=== PATIENT | female | born 1975 | race Caucasian/White ===

== ENCOUNTER → 2021-03-15 20:29 | Outpatient (CLI) | payer SELFPAY | PROVIDERS: Visit Provider Nurse Practitioner Family | DX: U07.1 COVID-19 (principal) | CPT/HCPCS: C9803; U0003; U0005 ==

== ENCOUNTER 2022-09-09 11:24 | Emergency (ER) | payer MEDICAID, SELFPAY ==
--- NOTE | 2022-09-09 11:55 | EXP.UTC ---
Discharge Plan Disposition Patient Disposition: Home, Self-Care Condition: Good Prescriptions Prescriptions: New azithromycin [Zithromax] 250 mg tablet 250 mg PO UD DOSE PK Qty: 6 0RF Rx Instructions: Take two (2) tablets today, then one (1) tablet days #2 thru #5 benzonatate [benzonatate] 100 mg capsule 100 mg PO TIDP PRN (Reason: Cough) Qty: 30 0RF methylprednisolone 4 mg Tablets,Dose Pack 4 mg PO DIRECTED Qty: 21 0RF No Action diclofenac sodium 75 mg tablet,delayed release (DR/EC) 75 mg PO BID topiramate [Topamax] 100 mg tablet 100 mg PO BID tizanidine [Zanaflex] 4 mg capsule 4 mg PO Q8H PRN (Reason: .) hydrocodone 5 mg-acetaminophen 500 mg tablet 5-500 mg tablet 1 tab PO QID famotidine 20 mg tablet 20 mg PO DAILY cholecalciferol (vitamin D3) 125 mcg (5,000 unit) capsule 125 mcg PO DAILY Label Comments: TAKE 1 CAPSULE BY MOUTH ONCE DAILY Referrals Follow up/Referrals: Jodie Nunez APRN [Primary Care Provider] - See instructions Activity Restrictions/Add. Instructions Additional Instructions/Restrictions: Drink plenty of fluids. Take tylenol or ibuprofen for pain or fever. Take the medications as directed. Follow up with your regular doctor. GO TO THE ER FOR ANY WORSENING SYMPTOMS Clinical Impressions Clinical Impression: Sinusitis, Bronchitis Instructions Patient Instructions: DI for Sinusitis Discharge ED Provider: Ligia Willoughby [facility] General Stated complaint: Congestion headache sore throat drainage Time Seen by Provider: 09/09/22 11:55 Related Data Home Medications Medication Instructions Recorded Confirmed diclofenac sodium 75 mg 75 mg PO BID . 03/15/21 09/09/22 tablet,delayed release hydrocodone 5 mg-acetaminophen 500 1 tab PO QID . 03/15/21 09/09/22 mg tablet tizanidine 4 mg capsule (Zanaflex) 4 mg PO Q8H PRN . 03/15/21 09/09/22 topiramate 100 mg tablet (Topamax) 100 mg PO BID . 03/15/21 09/09/22 cholecalciferol (vitamin D3) 125 125 mcg PO DAILY Supplement 09/09/22 09/09/22 mcg (5,000 unit) capsule famotidine 20 mg tablet 20 mg PO DAILY GERD 09/09/22 09/09/22 Previous Rx's Medication Instructions Recorded azithromycin 250 mg tablet 250 mg PO UD DOSE PK #6 tabs 09/09/22 (Zithromax) benzonatate 100 mg capsule 100 mg PO TIDP PRN Cough #30 caps 09/09/22 methylprednisolone 4 mg tablets in 4 mg PO DIRECTED #21 tabs 09/09/22 a dose pack Allergies Allergy/AdvReac Type Severity Reaction Status Date / Time amoxicillin [From Augmentin] Allergy Verified 09/09/22 12:04 clavulanic acid Allergy Verified 09/09/22 12:04 [From Augmentin] [facility] Disclaimer: The information contained in this section may have been updated after the patient was seen, as this information can be updated by other users. Social History Smoking Status: Current every day smoker alcohol intake: never current occupational status: unemployed Travel in the last 8 weeks: None ROS Obtained: Yes All systems reviewed & no additional complaints except as documented Constitutional Constitutional: Reports chills and Reports fever(s) Eyes Eyes: Denies eye discharge ENT Ears, Nose, Mouth, and Throat: Reports as per HPI Cardiovascular Cardiovascular: Denies chest pain Respiratory Respiratory: Denies chest congestion and Reports cough Gastrointestinal Gastrointestingal: Reports nausea; Denies abdominal pain, constipation, cramping, diarrhea or vomiting Musculoskeletal Musculoskeletal: Denies arthralgias Integumentary/Breasts Skin/Breast: Denies rash Neurologic Neurologic: Denies paresthesias Physical Exam General General appearance: alert and in no apparent distress Eye Eye exam: Present normal appearance, PERRL and EOMI ENT ENT exam: Present mucous membranes moist and normal external ear exam Expanded ENT Exam Externa
[2022-09-09 12:00] VITALS: BP 169/97; PULSE 88; RESP 20; TEMP 36.9; O2SAT 97; BMI 29.7
[2022-09-09 12:54] VITALS: BP 169/97; PULSE 88; RESP 20; TEMP 36.9; O2SAT 97
== END 2022-09-09 12:53 | disposition home or self-care (01) ==
PROVIDERS: Emergency Provider Physician Assistant; PCP Nurse Practitioner Family
DX: J20.9 Acute bronchitis, unspecified (principal); J01.90 Acute sinusitis, unspecified; F17.200 Nicotine dependence, unspecified, uncomplicated
CPT/HCPCS: 99204; 99212; G0463

== ENCOUNTER 2025-05-15 15:10 | Outpatient (CLI) | payer MEDICAID, SELFPAY ==
--- OUTSIDE RECORDS SUMMARY | 2025-04-03 11:45 | XMS_ITS | Encounter Summary ---
Author Organization [employer] ([place], [place], [place], [place], [place]) Address [address] [place] [address] Care Team Providers Care Blackjack Supervisor Name Role Phone Jodie Nunez SENIOR TECHNICAL RECRUITER Primary Care Provider + Harvey Pritchard APRN Unavailable [phone] Maxime James MD Unavailable Reason for Referral * Diagnostic X-Ray (Routine) - Closed Specialty Diagnoses / Procedures Referred By Contac t Referred To Contact Radiology Diagnoses Radiculopathy of lumbar region Cervical myelopathy with cervical radiculopathy (HCC) Procedures XR spine cervical 2 or 3 views Harvey Pritchard, SENIOR TECHNICAL RECRUITER [address] [place] [address] Phone: tel: fax: [facility] - X-ray [address] [place] [address] Phone: tel: fax: Referral ID Status Reason Start Date Expiration Date Visits Re quested Visits Authorized [id number] Closed 04/03/2025 04/03/2026 1 1 * Diagnostic X-Ray (Routine) - Closed Specialty Diagnoses / Procedures Referred By Contac t Referred To Contact Radiology Diagnoses Spinal stenosis of lumbar region, unspecified whether neurogenic claudication present Procedures XR spine lumbar 2 or 3 views Harvey Pritchard, SENIOR TECHNICAL RECRUITER [address] [facility] [place] [address] Phone: tel: fax: [facility] - X-ray [address] [place] [address] Phone: tel: fax: Referral ID Status Reason Start Date Expiration Date Visits Re quested Visits Authorized [id number] Closed 04/03/2025 04/03/2026 1 1 Reason for Visit * Diagnostic X-Ray (Routine) - Closed Specialty Diagnoses / Procedures Referred By Justyn garcia Referred To Contact Radiology Diagnoses Radiculopathy of lumbar region Cervical myelopathy with cervical radiculopathy (HCC) Procedures XR spine cervical 2 or 3 views Harvey Pritchard, SENIOR TECHNICAL RECRUITER [address] [facility] [place] [address] Phone: tel: fax: [facility] - X-ray [address] [place] [address] Phone: tel: fax: Referral ID Status Reason Start Date Expiration Date Visits Re quested Visits Authorized [id number] Closed 04/03/2025 04/03/2026 1 1 Encounter Details Date Type Department Care Team (Latest Contact Info) Description 04/03/2025 12:45 PM EDT - 04/03/2025 11:59 PM EDT Hospital Encounter [facility] - X-ray [address] [place] [address] Harvey Pritchard, SENIOR TECHNICAL RECRUITER [address] [facility] [place] [address] Spinal stenosis of lumbar region, unspecified whether neurogenic claudication present; Radiculopathy of lumbar region; Cervical myelopathy with cervical radiculopathy (HCC) Discharge Disposition: Home or Self Care Social History Tobacco Use Types Packs/Day Years Used Date Smoking Tobacco: Every Day Cigarettes Smokeless Tobacco: Never Comments:Last smoke this am 10/21/24 Alcohol Use Standard Drinks/Week Comments Not Currently 0 (1 standard drink = 0.6 oz pur e alcohol) Utilities Answer Date Recorded In the past 12 months, has t he electric, gas, oil, or water company threatened to shut off services in your home? No 10/21/2024 Interpersonal Safety Answer Date Record ed How often does anyone, javier riddle family and friends, physically hurt you? Never 10/21/2024 How often does anyone, javier riddle family and friends, insult or talk down to you? Never 10/21/2024 How often does anyone, javier riddle family and friends, threaten you with harm? Never 10/21/2024 How often does anyone, javier riddle family and friends, scream or curse at you? Never 10/21/2024 Housing Stability Answer Date Recorded What is your living situation today? I have a [facility] place to live 10/21/[address] you li ve. Do you have problems with any of the following? None of the above 10/21/2024 Food Insecurity Answer Date Recorded Within the past 12 months, y ou worried that your food would run out before you got money to buy more. Never true 10/21/2024 Within the past 12 months, t he food you bought just didn't last and you didn't have money to get more. Never true 10/21/2024 Transportation Needs Answer Date Record ed In the past 12 months, has l ack of reliable transportation kept you from medical appointments, meetings, work or from getting things needed for daily living? No 10/21/2024 Financial Resource Strain Answer Date R ecorded How hard is it for you to pa y for the very basics like food, housing, medical care, and heating? Would you say it is: Not hard at all 10/21/2024 Employment Answer Date Recorded Do you want help finding or keeping work or a job? I do not need or want help 10/21/2024 Family and Community Support Answer Fredy e Recorded If for any reason you need h elp with day-to-day activities such as bathing, preparing meals, shopping, managing finances, etc., do you get the help you need? I get all the help I need 10/21/2024 Feeling Lonely or Isolated 1 10/21 Educational Attainment Answer Date Rufus rded Do you speak a language other than Uzbek at ho me? No 10/21/2024 Do you want help with school or training? For example, starting or completing job training or getting a high school diploma, GED or equivalent. No 10/21/2024 Physical Activity Answer Date Recorded Number of minutes of exercise per week 0 10/21/2024 Self Management Answer Date Recorded Because of a physical, menta l, or emotional condition, do you have serious difficulty concentrating, remembering, or making decisions? (5 years or older) No 10/21/2024 Because of a physical, menta l, or emotional condition, do you have difficulty doing errands alone such as visiting a doctor's office or shopping? (15 years or older) No 10/21/2024 Substance Use Answer Date Recorded How many times in the past y ear have you used prescription drugs for non-medical reasons? Never 10/21/2024 How many times in the past year have you used il legal drugs? Never 10/21/2024 Mental Health Answer Date Recorded Calculation of above two rows 1 Comments No Sex and Gender Information Value Date Recorded Sex Assigned at Female 02/28/2024 11:04 AM CDT Legal Sex Female 1:42 PM CDT Gender Identity Female 02/28/2024 11:04 AM CDT Sexual Orientation Straight 10/21/2024 1: 16 PM CDT documented as of this encounter Medications at Time of Discharge acetaminophen (TYLENOL) 500 MG tablet Take 1 tablet (500 mg total) by mouth every 6 (six) hours as needed for pain. albuterol (Ventolin HFA) 90 mcg/actuation inhaler Inhale 2 puffs by mouth every 4 (four) hours as needed. cetirizine (ZyrTEC) 10 MG tablet Take 1 tablet (10 mg total) by mouth daily. diphenhydrAMINE (BENADRYL) 25 mg tablet Take 1 tablet (25 mg total) by mouth nightly. famotidine (PEPCID) 20 MG tablet Take 1 tablet (20 mg total) by mouth nightly. 02/02/2024 FeroSuL 325 mg (65 mg iron) tablet Take 1 tablet (325 mg total) by mouth daily with breakfast. 11/12/2024 fluticasone propionate (FLONASE) 50 mcg/actuation nasal spray Administer 2 sprays into each nostril daily. losartan (COZAAR) 25 MG tablet Take 1 tablet (25 mg total) by mouth daily. oxyCODONE (ROXICODONE) 5 MG immediate release tablet Take 1 tablet (5 mg total) by mouth every 6 (six) hours as needed for up to 30 doses . Max Daily Amount: 20 mg 30 tablet 10/25/2024 polyethylene glycol (GLYCOLAX) 17 gram/dose powder Take 17 g by mouth nightly. pregabalin (LYRICA) 50 MG capsule Take 1 capsule (50 mg total) by mouth nightly at bedtime. tiZANidine (ZANAFLEX) 4 MG tablet Take 1 tablet (4 mg total) by mouth 3 (three) times daily as needed. 10/01/2024 topiramate (TOPAMAX) 100 MG tablet Take 1 tablet (100 mg total) by mouth 2 (two) times daily. 01/23/2024 documented as of this encounter Plan of Treatment Upcoming Encounters Date Type Department Care Team (Late st Contact Info) Description 10/02/2025 12:15 PM EDT Office Visit [facility] [address] [id number] Drew Aguilar DO [address] [place] [address] documented as of this encounter Procedures Procedure Name Priority Date/Time Associated Diagnosis Comments XR LUMBAR SPINE 2 OR 3 VIEWS Routine 04/03/2025 12:54 PM EDT Spinal stenosis of lumbar region, unspecified whether neurogenic claudication present XR SPINE CERVICAL 2 OR 3 VIEWS Routine 04/03/2025 12:54 PM EDT Radiculopathy of lumbar region Cervical myelopathy with cervical radiculopathy (HCC) documented in this encounter Results * XR spine cervical 2 or 3 views (04/03/2025 12:54 PM EDT) Anatomical Region Laterality Modality C-spine, T-spine, Neck X-Ray Narrative 04/03/2025 1:06 PM EDT AP and lateral views of the cervical spine was taken in clinic today 02/09/2025 was reviewed and interpreted. The patient's status post C5-7 anterior cervical discectomy and fusion. The patient status post C5-7 anterior cervical discectomy fusion. Instrumentation in good position without loosening or failure. There has been no interval cage subsidence. There is no significant adjacent segment degeneration. Harvey Pritchard SENIOR TECHNICAL RECRUITER [facility] ORDER ZAYDA Final Result * XR spine lumbar 2 or 3 views (04/03/2025 12:54 PM EDT) Anatomical Region Laterality Modality L-spine X-Ray Narrative 04/03/2025 1:05 PM EDT AP and lateral views of the lumbar spine was in clinic today 04/03/2025 was reviewed and interpreted. The patient is status post L3-4 transforaminal lumbar interbody fusion. Instrumentation in good position without loosening or failure. There has been no interval cage subsidence. There is L4-5 facet hypertrophy. There are pars defects of L5. There is grade 1 spondylolisthesis of L5-S1. There is significant disc height loss at L5-S1. Harvey Pritchard SENIOR TECHNICAL RECRUITER [facility] ORDER ZAYDA Final Result documented in this encounter Visit Diagnoses Diagnosis Spinal stenosis of lumbar region, unspecified whether neurogenic claudication present Radiculopathy of lumbar region Cervical myelopathy with cervical radiculopathy (HCC) documented in this encounter Care Teams Blackjack Supervisor Relationship Specialty Start Date End Date Jodie Nunez APRN [address] [place] [address] PCP - General Nurse Practitioner 02/22/24 Harvey Pritchard, MEERA [address] [place] [address] Orthopedic Surgery 07/23/24 Maxime James MD [address] [place] [address] Sports Medicine 08/22/24 documented as of this encounter
--- OUTSIDE RECORDS SUMMARY | 2025-04-03 12:15 | XMS_ITS | Encounter Summary ---
Author Organization [employer] ([place], [place], [place], [place], [place]) Address [address] [place] [address] Care Team Providers Care Engagement Mgr Name Role Phone Jodie Nunez DRYING MACHINE TENDER Primary Care Provider + Harvey Pritchard APRN Unavailable [phone] Maxime James MD Unavailable Reason for Visit * Reason Comments Follow-up 10/21/24. L3-4 TLIF. Pt stated she was doing well, stated she has some mild weakness at times. Otherwise no new complaints at this time. Encounter Details Date Type Department Care Team (Late st Contact Info) Description 04/03/2025 1:15 PM EDT Office Visit [facility] - [address] [phone] Drew Aguilar DO [address] [place] [id number] Surgery follow-up (Primary Dx) Social History Tobacco Use Types Packs/Day Years Used Date Smoking Tobacco: Every Day Cigarettes Smokeless Tobacco: Never Tobacco Cessation:Ready to Q uit: Not Asked; Counseling Given: Not Answered Comments:Last smoke this am 10/21/24 Alcohol Use [...] your living situation today? I have a [facility] place to live 10/21/2024 Think about the [...] Do you speak a language other than Afghan at ho me? No 10/21/2024 Do you [...] PM CDT documented as of this encounter Last Filed Vital Signs Vital Sign Reading Time Taken Comments Blood Pressure 166/94 04/03/2025 1:06 PM EDT Pulse - - Temperature - - Respiratory Rate - - Oxygen Saturation - - Inhaled Oxygen Concentration - - Weight 88.5 kg (195 lb) 04/03/2025 1:06 PM EDT Height 170.2 cm (5' 7 ) 04/03/2025 1:06 PM EDT Body Mass Index 30.54 04/03/2025 1:06 PM EDT documented in this encounter Progress Notes * Harvey Pritchard, DRYING MACHINE TENDER - 04/03/2025 1:15 PM EDT ORTHO NOTE: History of Present Illness: This is a 50-year-old female who presents to clinic today for follow-up of both L3-L4 TLIF, and C5-C7 ACDF. L3-L4 TLIF was completed on 10/21/2024. C5-C7 ACDF was completed on 03/06/2024. Patient notes overall she has been doing well with surgical interventions. No radicular pain noted. She does note some intermittent lumbar spine pain. She presents to the clinic today for routine follow-up Physical Exam: General appearance: alert, appears stated age and cooperative Musc: 5 out of 5 motor strength noted all extremities. Anterior cervical incision, posterior lumbarsurgical incision well-healed. No infectious process noted. No cellulitis or erythema noted Vitals: Blood pressure (!) 166/94, height 1.702 m (5' 7 ), weight 88.5 kg (195 lb). Laboratory Data: No results found for this visit on 04/03/25 (from the past 24 hours). Microbiology Results (last 7 days) No results found for the last 168 hours. Radiology: Radiology Results (last 7 days) Procedure Component Value Units Date/Time XR spine lumbar 2 or 3 views [[id number]] Resulted: 04/03/251304 Order Status: Completed Updated: 04/03/251304 Narrative: AP and lateral views of the lumbar [...] is significant disc height loss at L5-S1. XR spine cervical 2 or 3 views [[id number]] Resulted: 04/03/251305 Order Status: Completed Updated: 04/03/251305 Narrative: AP and lateral views of the cervical spine was taken in clinic today 02/09/2025 was reviewed and interpreted. The patient's status post C5-7 anterior cervical discectomy and fusion. The patient status post C5-7 anterior cervical discectomy fusion. Instrumentation in good position without loosening or failure. There has been no interval cage subsidence. There is no significant adjacent segment degeneration. Assessment: #1 status post L3-L4 TLIF #2 status post C5-C7 ACDF Plan: Patient overall doing well. No instrumentation complication noted. She has done well status post surgical intervention. Patient will follow-up in October next year for repeat examination. She is to notify the office of any new complaints or concerns. She verbalized understanding of the findings, and is agreeable to the plan of care. Signed: Harvey Pritchard APRN 04/03/2025 1:10 PM Scribe Statement By signing my name below, I, Harvey Pritchard APRN, attest that this documentation has been preparedunder the direction and in the presence of Drew Aguilar DO. I completed the following sections of the note: HPI- History Present Illness, PE-Physical Exam, Assessment, and Plan Electronically Signed: Harvey Pritchard APRN, Scribe. 04/03/2025 1:10 PM EDT. Cosigned by Drew Aguilar DO at 04/04/2025 9:47 AM EDT Associated attestation - Drew Aguilar DO - 04/04/2025 8:47 AM CDT I, Drew Aguilar DO, personally performed the services described in this documentation, as scribed by Harvey Pritchard APRN in my presence, and it is both accurate and complete. documented in this encounter Plan of Treatment Upcoming Encounters Date Type Department Care Team (Late st Contact Info) Description 10/02/2025 12:15 PM EDT Office Visit [facility] - [address] [phone] Drew Aguilar DO [facility] [place] [address] documented as of this encounter Visit Diagnoses Diagnosis Surgery follow-up- Primary documented in this encounter Care Teams Engagement Mgr Relationship Specialty Start Date End Date Jodie Nunez APRN [address] [place] [address] PCP - General Nurse Practitioner 02/22/24 Harvey Pritchard APRN [address] [place] [address] Orthopedic Surgery 07/23/24 Maxime James MD [address] [place] [address] Sports Medicine 08/22/24 documented as of this encounter
--- OUTSIDE RECORDS SUMMARY | 2025-05-15 15:13 | XMS_ITS | Clinical Summary ---
Author Organization [facility] Address [address] [place] [address] Care Team Providers Care Zipper Repairer Name Role Phone Paulo Chase MD Primary Care Provider [phone] Allergies Active Allergy Reactions Criticality Noted Date Comments Amoxicillin-Pot Clavulanate Other (See Comments) Medium 07/18/2016 SORES IN MOUTH Medications tiZANidine (ZANAFLEX) 4 MG tablet Take 4 mg by mouth 3 (Three) Times a Day. Active gabapentin (NEURONTIN) 600 MG tablet Take 600 mg by mouth 3 (Three) Times a Day. Active diclofenac (VOLTAREN) 75 MG EC tablet Take 75 mg by mouth 2 (Two) Times a Day. Taken with food or milk Active traMADol (ULTRAM) 50 MG tablet Take 50 mg by mouth Every 6 (Six) Hours As Needed for Moderate Pain . Active topiramate (TOPAMAX) 50 MG tablet Take 50 mg by mouth 2 (Two) Times a Day. Active meloxicam (MOBIC) 15 MG tablet Take 15 mg by mouth Daily. Active Active Problems No known active problems Family History Medical History Relation Name Comments Diabetes Father Hypertension Father Arthritis Mother Heart disease Mother Hypertension Mother Lupus Mother Relation Name Status Comments Father Mother Social History Tobacco Use Types Packs/Day Years Used Date Smoking Tobacco: Every Day Cigarettes Smokeless Tobacco: Never Tobacco Cessation:Ready to Q uit: No Alcohol Use Standard Drinks/Week Comments Yes 0 (1 standard drink = 0.6 oz pur e alcohol) Abuse Screen Answer Date Recorded Unsafe at Home or Work/School Not on file Feels Threatened by Someone? Not on file 03/2023 Does Anyone Keep You from Co ntacting Others or Doint Things Outside the Home? Not on file 04/10/2023 Physical Sign of Abuse Present Not on file 1 Housing Stability Answer Date Recorded Current Living Arrangements Not on file 03/2023 Potentially Unsafe Housing Conditions Not on carole e 04/10/2023 Family and Community Support Answer Fredy e Recorded Help with Day-to-Day Activities Not on file 04/10/2023 Lonely or Isolated Not on file 04/10/2023 Employment Answer Date Recorded Do you want help finding or keeping work or a matt b? Not on file 04/10/2023 Disabilities Answer Date Recorded Concentrating, Remembering, or Making Decisions Difficulty Not on file 04/10/2023 Doing Errands Independently Difficulty Not on fi le 04/10/2023 Education Answer Date Recorded Help with school or training? Not on file Preferred Language Not on file 04/10/2023 Comments No Sex and Gender Information Value Date Recorded Sex Assigned at Not on file Legal Sex Female 11:44 AM EDT Gender Identity Not on file Sexual Orientation Not on file Last Filed Vital Signs Vital Sign Reading Time Taken Comments Blood Pressure 108/64 05/21/2019 1:38 PM EST Pulse 77 03/01/2018 4:59 PM EDT Temperature 36.2 C (97.2 F) 05/24/2019 12:15 PM EST Respiratory Rate 14 03/01/2018 4:59 PM EDT Oxygen Saturation 98% 03/01/2018 4:59 PM EDT Inhaled Oxygen Concentration - - Weight 93 kg (205 lb) 05/24/2019 12:15 PM EST Height 170.2 cm (5' 7 ) 05/24/2019 12:15 PM EST Body Mass Index 32.11 05/24/2019 12:15 PM EST Plan of Treatment Health Maintenance Due Date Last Done Comments Annual Gynecologic Pelvic an d Breast Exam 1977 TDAP/TD VACCINES (1 - Tdap) 1996 MAMMOGRAM 2017 ANNUAL PHYSICAL 04/12/2017 HEPATITIS C SCREENING 04/12/2017 COLOGUARD 2022 COLON CANCER SCREENING 5 YEA R SIGMOIDOSCOPY 2022 COLONOSCOPY 2022 COL[address]ECTAL CANCER SCREENING 2022 CT COLONOGRAPHY 2022 FECAL OCCULT BLOOD TEST 2022 FIT Testing (1 year) 2022 INFLUENZA VACCINE 01/31/2025 Pneumococcal Vaccine 0-49 Aged Out No longer eligible based on patient's age to complete this topic [facility] Care Teams Zipper Repairer Relationship Specialty Start Date End Date Paulo Chase MD [address] [place] [address] [place] [address] PCP - General Family Medicine 07/18/16
--- OUTSIDE RECORDS SUMMARY | 2025-05-15 15:13 | XMS_ITS | Encounter Summary ---
Author Organization [email or web address] ([place], [place], [place], [place], [place]) Address [address] [place] [address] Care Team Providers Care Interface Analyst Name Role Phone Jodie Nunez APRN Primary Care Provider + Harvey Pritchard APRN Unavailable [phone] Maxime James MD Unavailable Encounter Details Date Type Department Care Team (Latest Contact Info) Description 04/03/2025 Travel Social History Tobacco Use Types Packs/Day Years [...] your living situation today? I have a [facility] place to live 10/21/2024 Think about [...] Do you speak a language other than [place] at [facility]? No 10/21/2024 Do you want help with [...] PM CDT documented as of this encounter Plan of Treatment Upcoming Encounters Date Type Department Care Team (Late st Contact Info) Description 10/02/2025 12:15 PM EDT Office Visit [facility] Orthopedics - [facility] [address] [place] [id number] Drew Aguilar DO [address] [place], [place] [id number] documented as of this encounter Visit Diagnoses Not on filedocumented in this encounter Care Teams Interface Analyst Relationship Specialty Start Date End Date Jodie Nunez, [employer] [address] [place], [place] [id number] PCP - General Nurse Practitioner 02/22/24 Harvey Pritchard, [employer] REP [address] [place] [address] Orthopedic Surgery 07/23/24 Maxime James MD [address] [place] [address] Sports Medicine 08/22/24 documented as of this encounter
--- OUTSIDE RECORDS SUMMARY | 2025-05-15 15:13 | XMS_ITS | Encounter Summary ---
Author Organization [employer] ([place], [place], [place], [place], [place]) Address [address] [place] [address] Care Team Providers Care Implementation Specialist Payroll Name Role Phone Jodie Nunez [employer] DRIVER Primary Care Provider + Harvey Pritchard APRN Unavailable [phone] Maxime James MD Unavailable Reason for Referral * Diagnostic X-Ray (Routine) - Closed Specialty Diagnoses / Procedures Referred By Justyn garcia Referred To Contact Radiology Diagnoses Cervical myelopathy with cervical radiculopathy (HCC) Procedures XR chest 2 views Drew Aguilar DO [address] [place] [address] Phone: tel: fax: Referral ID Status Reason Start Date Expiration Date Visits Re quested Visits Authorized [id number] Closed 02/22/2024 02/21/2025 1 1 Encounter Details Date Type Department Care Team (Late st Contact Info) Description 02/22/2024 Surgery Prep [facility] Orthopedics - [address] [address] Sondra Doe CMA Cervical myelopathy with cervical radiculopathy (HCC) (Primary Dx) Social History Tobacco Use Types Packs/Day Years Used Date Smoking Tobacco: Every Day Cigarettes Smokeless Tobacco: Never Alcohol Use Standard Drinks/Week Comments Yes 0 (1 standard drink = 0.6 oz pur e alcohol) Food Insecurity Answer Date Recorded Food run out past 12 months Not on file 01/31 Food did not last past 12 months Not on file 02/19/2024 Employment Answer Date Recorded Help finding and keeping a job Not on file 0 02/19/2024 Family and Community Support Answer Fredy e Recorded Help with Day to Day Activities Not on file 02/19/2024 Feeling Lonely or Isolated Not on file 02/18 Educational Attainment Answer Date Rufus rded Speak language other than Spanish at home Not on file 02/19/2024 Want help with school or training Not on file 02/19/2024 Substance Use Answer Date Recorded Used prescription meds for non-medical reasons N ot on file 02/19/2024 Used illegal drugs past 12 months Not on file 02/19/2024 Comments Unknown Sex and Gender Information Value Date Recorded Sex Assigned at Female 02/28/2024 11:04 AM CDT Legal Sex Female 1:42 PM CDT Gender Identity Female 02/28/2024 11:04 AM CDT Sexual Orientation Straight 10/21/2024 1: 16 PM CDT documented as of this encounter Plan of Treatment Upcoming Encounters Date Type Department Care Team (Late st Contact Info) Description 10/02/2025 12:15 PM EDT Office Visit [facility] [address] [phone] Drew Aguilar DO [address] [place], [place] [id number] documented as of this encounter Results * XR chest 2 views (02/28/2024 1:52 PM EDT) Anatomical Region Laterality Modality Chest X-Ray 02/28/2024 2:33 PM EDT Impressions 02/28/2024 2:57 PM EDT No acute cardiopulmonary process. Images reviewed, interpreted, and dictated by Dr. Ilda Green. Transcribed by Ynes Coyle PA-C. Narrative 02/28/2024 2:57 PM EDT TWO VIEW CHEST HISTORY: Precordial chest pain. COMPARISON: None. FINDINGS: The heart is normal in size. The mediastinum is unremarkable. The lungs are clear. There is no pneumothorax. Procedure Note Ilda Green MD - 02/28/2024 TWO VIEW CHEST HISTORY: Precordial chest pain. COMPARISON: None. FINDINGS: The heart is normal in size. The mediastinum is unremarkable. The lungs are clear. There is no pneumothorax. IMPRESSION: No acute cardiopulmonary process. Images reviewed, interpreted, and dictated by Dr. Ilda Green. Transcribed by Ynes Coyle PA-C. Drew Aguilar DO IMG DIAGNOSTIC IMAGING ORDE GABRIELLA Final Result * MRSA Screen (02/28/2024 1:21 PM EDT) MRSA by PCR [facility] MRSA Not Detected by PCR MRSA Not Detected by PCR DEVICE ID9 02/28/2024 10:39 PM EDT [facility] Nasal 02/28/2024 1:21 PM EDT 02/28/2024 1:48 PM EDT us Drew Aguilar DO MICROBIOLOGY - GENERAL ORDE GABRIELLA Final Result Performing Organization Address City/State/[facility] Co de Phone Number [facility] [address] [phone] * Urinalysis, Reflex Microscopic and Culture If Indicated (02/28/2024 1:21 PM EDT) Color, UA Light Yellow 02/28/2024 1:31 PM EDT [facility] Clarity, UA Clear Clear 02/28/2024 1:31 PM EDT [facility] Specific [place], UA 1.013 1.005 - 1.030 02/28/2024 1:31 PM EDT [facility] pH, UA 7.0 6.0 - 8.0 02/28/2024 1:31 PM EDT [facility] Leukocytes, UA Negative Negative 02/28/2024 1:31 PM EDT [facility] Nitrite, UA Negative Negative 02/28/2024 1:31 PM EDT [facility] Protein, UA Negative Negative 02/28/2024 1:31 PM EDT [facility] Glucose, UA Normal Normal 02/28/2024 1:31 PM EDT [facility] Ketones, UA Negative Negative 02/28/2024 1:31 PM EDT [facility] Bilirubin, UA Negative Negative 02/28/2024 1:31 PM EDT [facility] Blood, UA Negative Negative 02/28/2024 1:31 PM EDT [facility] Urobilinogen, UA Normal Normal 02/28/2024 1:31 PM EDT [facility] Specimen Source Urine, Clean Catch 02/28/2024 1:31 PM EDT [facility] Urine URINE SPECIMEN COLLECTION, CLEAN CATCH / Unknown 02/28/2024 1:21 PM EDT 02/28/2024 1:21 PM EDT Drew Torres Jeff DO URINE ORDERABLES Final Resu lt [facility] [address] [phone] * (ABNORMAL) Basic Metabolic Panel (02/28/2024 12:59 PM EDT) Sodium 141 135 - 145 meq/L 02/28/2024 1:59 PM EDT [facility] Potassium 4.1 3.5 - 5.3 meq/L 02/28/2024 1:59 PM EDT [facility] Chloride 112(H) 101 - 111 meq/L 02/28/2024 1:59 PM EDT [facility] CO2 26 21 - 31 meq/L 02/28/2024 1:59 PM EDT [facility] Anion Gap 7(L) 8 - 16 02/28/2024 1:59 PM EDT [facility] BUN 14 6 - 20 mg/dL 02/28/2024 1:59 PM EDT [facility] Creatinine 0.86 0.50 - 1.20 mg/dL 02/28/2024 1:59 PM EDT [facility] BUN/Creatinine 16 02/28/2024 1:59 PM EDT [facility] Glucose 104 70 - 109 mg/dL 02/28/2024 1:59 PM EDT [facility] Calcium 9.6 8.5 - 10.5 mg/dL 02/28/2024 1:59 PM EDT [facility] Osmolality Calc 282.0 1:59 PM EDT [facility] eGFR (mL/min/1.73m2) >60 >=60 mL/min/1.7 3m2 02/28/2024 1:59 PM EDT [facility] Comment:eGFR of <60 suggests chronic kidney disease if found over a 3 month period of time. eGFR <15 indicates renal failure. Blood Venipuncture / Unknown 02/28/2024 12:59 PM EDT 02/28/2024 1:19 PM EDT Drew Torres Jeff DO LAB BLOOD ORDERABLES Final Result [facility] [address] [phone] * (ABNORMAL) CBC with automated diff (02/28/2024 12:59 PM EDT) WBC 10.1(H) 4.0 - 10.0 K/ L 02/28/2024 1:22 PM EDT [facility] RBC 4.19 3.93 - 5.22 M/ L 02/28/2024 1:22 PM EDT [facility] Hemoglobin 13.6 11.2 - 15.7 GM/DL 02/28/2024 1:22 PM EDT [facility] Hematocrit 42.7 34.1 - 44.9 % 02/28/2024 1:22 PM EDT [facility] MCV 102(H) 79 - 95 fL 02/28/2024 1:22 PM EDT [facility] MCH 32.5(H) 25.6 - 32.2 pg 02/28/2024 1:22 PM EDT [facility] MCHC 31.9(L) 32.2 - 35.5 GM/DL 02/28/2024 1:22 PM EDT [facility] RDW 12.5 11.7 - 14.4 % 02/28/2024 1:22 PM EDT [facility] Platelets 308 140 - 375 K/CU MM 02/28/2024 1:22 PM EDT [facility] MPV 10.3 9.4 - 12.3 fL 02/28/2024 1:22 PM EDT [facility] Nucleated Red Blood Cell 0.0 0 - 0.2 % 02/28/2024 1:22 PM EDT [facility] % Neutros 54 34 - 71 % 02/28/2024 1:22 PM EDT [facility] % Lymphs 36 19 - 52 % 02/28/2024 1:22 PM EDT [facility] % Monos 5 5 - 13 % 02/28/2024 1:22 PM EDT [facility] % Eos 4 1 - 6 % 02/28/2024 1:22 PM EDT [facility] % Baso 1 0 - 1 % 02/28/2024 1:22 PM EDT [facility] NRBC Absolute <0.01 0 - 0.012 K/ul 02/28/2024 1:22 PM EDT [facility] # Neutros 5.39 1.56 - 6.13 K/ L 02/28/2024 1:22 PM EDT [facility] # Lymphs 3.64 1.18 - 3.74 K/ L 02/28/2024 1:22 PM EDT [facility] # Monos 0.51 0.24 - 0.86 K/ L 02/28/2024 1:22 PM EDT [facility] # Eos 0.44(H) 0.04 - 0.36 K/ L 02/28/2024 1:22 PM EDT [facility] # Baso 0.06 0.01 - 0.08 K/ L 02/28/2024 1:22 PM EDT [facility] % Imm Grans 0.20 0.01 - 0.43 % 02/28/2024 1:22 PM EDT [facility] # IG <0.03 0.00 - 0.03 K/uL 02/28/2024 1:22 PM EDT [facility] Blood Venipuncture / Unknown 02/28/2024 12:59 PM EDT 02/28/2024 1:19 PM EDT Narrative [facility] - 02/28/2024 1:22 PM EDT When CBC w/ Auto Diff is ordered the lab will add a Manual Differential as a quality check at no additional charge if: Lymphocytes greater than seventy five percent with normal or increased WBC Monocytes greater than Fifteen percent Basophil greater than four percent Bands >10% or several immature myeloids are seen on scan Blast? Flag noted Atypical Lymph flag noted Note: reference ranges were changed on 08/01/2023. us Drew Torres Jeff DO LAB BLOOD ORDERABLES Final Result [facility] [address] [phone] documented in this encounter Visit Diagnoses Diagnosis Cervical myelopathy with cervical radiculopathy (HCC)- Primary Cervical myelopathy with cervical radiculopathy (HCC) documented in this encounter Care Teams Implementation Specialist Payroll Relationship Specialty Start Date End Date Jodie Nunez, [employer]CR[employer]E [employer] DRIVER [address] [place] [address] PCP - General Nurse Practitioner 02/22/24 Harvey Pritchard, [employer]IVER [address] [place] [address] Orthopedic Surgery 07/23/24 Maxime James MD [address] [place] [address] Sports Medicine 08/22/24 documented as of this encounter
--- OUTSIDE RECORDS SUMMARY | 2025-05-15 15:13 | XMS_ITS | Clinical Summary ---
Author Organization Healthcare Address [address] [place] [address] Care Team Providers Care Wardrobe Custodian Name Role Phone Ynes Flynn APRN Primary Care Provider [phone] Erin Castro MD Unavailable [phone] Allergies Active Allergy Reactions Criticality Noted Date Comments Amoxicillin-Pot Clavulanate Swelling High 01/11/20 19 Gabapentin Swelling High 01/01/2021 Medications diclofenac (Voltaren) 75 MG EC tablet Take 75 mg by mouth every 6 (six) hours. 01/10/2019 Active gabapentin (Neurontin) 600 MG tablet Take 600 mg by mouth every 6 (six) hours. 01/14/2019 Active tiZANidine (Zanaflex) 4 MG tablet Take 4 mg by mouth every 6 (six) hours. 01/10/2019 Active topiramate 50 MG tablet Take 50 mg by mouth. Active traMADol (Ultram) 50 MG tablet every 6 (six) hours. 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 03/26 Displacement of lumbar inter vertebral disc without myelopathy 03/26/2019 Lumbar spondylosis 03/26/2019 Encounter for therapeutic drug monitoring 2018 Spondylolisthesis at L5-S1 level 03/26/2019 Thoracic back pain 03/26/2019 Thoracic spondylosis without myelopathy 03/26/20 19 Fibromyalgia 02/26/2019 Pain in joints 01/10/2019 Family History Medical History Relation Name Comments Diabetes Father Hypertension Father Melanoma Father Ankylosing spondylitis Mother Rheum arthritis Mother Relation Name Status Comments Father Mother Social History Tobacco Use Types Packs/Day Years Used Date Smoking Tobacco: Every Day Smokeless Tobacco: Never Alcohol Use Standard Drinks/Week Comments No 0 (1 standard drink = 0.6 oz pur e alcohol) Comments Unknown Sex and Gender Information Value Date Recorded Sex Assigned at Not on file Legal Sex Female 8:37 PM EDT Gender Identity Not on file Sexual Orientation Not on file Last Filed Vital Signs Vital Sign Reading Time Taken Comments Blood Pressure 114/68 01/01/2021 8:28 AM EDT Pulse 82 02/26/2019 9:46 AM EDT Temperature 36.6 C (97.8 F) 02/26/2019 9:46 AM EDT Respiratory Rate - - Oxygen Saturation - - Inhaled Oxygen Concentration - - Weight 81.6 kg (180 lb) 01/01/2021 8:28 AM EDT Height 170.2 cm (5' 7 ) 01/01/2021 8:28 AM EDT Body Mass Index 28.19 01/01/2021 8:28 AM EDT Plan of Treatment Health Maintenance Due Date Last Done Comments [facility]-Depression Screening 1977 [facility]-Infant/Child/Adol SDOH Screenings 1977 [facility]- SDOH Screenings 1995 [facility]-Adult SDOH Screenings 1995 [facility]-DTaP,Tdap,and Td Vaccine s (1 - Tdap) 1996 [facility]-Hepatitis B Vaccines (1 of 3 - 19+ 3-dose series) 1996 [facility]-Pap Smear 1998 [facility]-Cervical Cancer Screening 2007 [facility]-HPV/Cotest 2007 CT Colonography 2022 Colonoscopy 2022 FIT-DNA 2022 FIT 2022 FOBT 2022 Sigmoidoscopy 2022 [facility]-Colorectal Cancer Screening 2022 [facility]-PSVVD-90 Vaccine (1 - 20 24-25 season) 2025 [facility]-Influenza Vaccine (#1) 2025 [facility]-Zoster Vaccines (1 of 2) 2027 HPV Vaccines Aged Out No longer eligi ble based on patient's age to complete this topic [facility]-HIB Vaccines Aged Out No longer e ligible based on patient's age to complete this topic [facility]-Hepatitis A Vaccines Aged Out No longer eligible based on patient's age to complete this topic [facility]-IPV Vaccines Aged Out No longer e ligible based on patient's age to complete this topic [facility]-Pneumococcal Vaccine: Pediatrics (0 to 5 Years) and At-Risk Patients (6 to 49 Years) Aged Out No long er eligible based on patient's age to complete this topic [facility]-Rotavirus Vaccines Aged Out No lo nger eligible based on patient's age to complete this topic Insurance [place] [address] Care Teams Wardrobe Custodian Relationship Specialty Start Date End Date Ynes Flynn APRN [address] [place] [id number] PCP - General 11/13/20 Erin Castro MD [address] [facility] [address] [place] [address] Surgeon Neurosurgery 01/01/21
--- OUTSIDE RECORDS SUMMARY | 2025-05-15 15:13 | XMS_ITS | Referral Summary ---
Author Organization [facility] ([place], [place], [place], [place], [place]) Address [address] [place] [address] Care Team Providers Care Rn Social Services Name Role Phone Jodie Nunez BOAT AND PLANT UTILITY SUPERVISOR Primary Care Provider + Harvey Pritchard APRN Unavailable [phone] Maxime James MD Unavailable Encounters Date Type Department Care Team Description 04/03/2025 Travel 04/03/2025 12:45 PM EDT - 04/03/2025 11:59 PM EDT Hospital Encounter [facility] - X-ray [address] [place] [address] Harvey Pritchard, BOAT AND PLANT UTILITY SUPERVISOR Spinal stenosis of lumbar region, unspecified whether neurogenic claudication present; Radiculopathy of lumbar region; Cervical myelopathy with cervical radiculopathy (HCC) Discharge Disposition: Home or Self Care 04/03/2025 1:15 PM EDT Office Visit [facility] - [facility] [address] [place] [address] Drew Aguilar DO Surgery follow-up (Primary Dx) from Last 3 Months Allergies Active Allergy Reactions Criticality Noted Date Comments Amoxicillin-Pot Clavulanate Hives,Swelling High 07/18/2016 Other reaction(s): Other (See Comments) SORES IN MOUTH SORES IN MOUTH Chlorhexidine 03/19/2024 Patient states that she had an allergic reaction to whatever she was cleaned with in surgery. Patient states she believes it was chlorhexidine. Clavulanic Acid 03/15/2021 Gabapentin Swelling High 01/01/2021 Chlorhexidine Gluconate Rash Low 10/21/2024 Lidocaine Other (See Comments) 10/16/2024 Topical lidocaine causes burning Medications famotidine (PEPCID) 20 MG tablet Take 1 tablet (20 mg total) by mouth nightly. Active topiramate (TOPAMAX) 100 MG tablet Take 1 tablet (100 mg total) by mouth 2 (two) times daily. Active fluticasone propionate (FLONASE) 50 mcg/actuation nasal spray Administer 2 sprays into each nostril daily. Active polyethylene glycol (GLYCOLAX) 17 gram/dose powder Take 17 g by mouth nightly. Active cetirizine (ZyrTEC) 10 MG tablet Take 1 tablet (10 mg total) by mouth daily. Active diphenhydrAMINE (BENADRYL) 25 mg tablet Take 1 tablet (25 mg total) by mouth nightly. Active albuterol (Ventolin HFA) 90 mcg/actuation inhaler Inhale 2 puffs by mouth every 4 (four) hours as needed. Active tiZANidine (ZANAFLEX) 4 MG tablet Take 1 tablet (4 mg total) by mouth 3 (three) times daily as needed. 5 Active acetaminophen (TYLENOL) 500 MG tablet Take 1 tablet (500 mg total) by mouth every 6 (six) hours as needed for pain. Active oxyCODONE (ROXICODONE) 5 MG immediate release tablet Take 1 tablet (5 mg total) by mouth every 6 (six) hours as needed for up to 30 doses . Max Daily Amount: 20 mg 30 tablet Active Additional Information Patient not taking.Reported on 04/03/2025 losartan (COZAAR) 25 MG tablet Take 1 tablet (25 mg total) by mouth daily. Active FeroSuL 325 mg (65 mg iron) tablet Take 1 tablet (325 mg total) by mouth daily with breakfast. Active pregabalin (LYRICA) 50 MG capsule Take 1 capsule (50 mg total) by mouth nightly at bedtime. Active Active Problems Problem Noted Date Diagnosed Date Lumbar stenosis 10/21/2024 Other spondylosis with radiculopathy, lumbar reg ion 10/14/2024 Partial tear of common extensor tendon of right elbow 08/22/2024 Cervical myelopathy with cervical radiculopathy 02/22/2024 Social History Tobacco Use Types Packs/Day Years [...] harm? Never 10/21/2024 How often does anyone, jvaier riddle family and friends, scream or curse at you? Never 10/21/2024 Housing Stability Answer Date Recorded What is your living situation today? I have a [facility] place to live 10/21/2024 Think about [...] Do you speak a language other than Italian at [facility]? No 10/21/2024 Do you want help with [...] Orientation Straight 10/21/2024 1: 16 PM CDT Last Filed Vital Signs Vital Sign Reading Time Taken Comments Blood Pressure 166/94 04/03/2025 1:06 PM EDT Pulse 87 01/28/2025 11:24 AM EDT Temperature 36.4 C (97.5 F) 10/25/2024 10:36 AM EDT Respiratory Rate 18 10/25/2024 2:36 AM EDT Oxygen Saturation 98% 11/28/2024 11:31 AM EDT Inhaled Oxygen Concentration 26% 10/24/2024 8 :58 PM EDT Weight 88.5 kg (195 lb) 04/03/2025 1:06 PM EDT Height 170.2 cm (5' 7 ) 04/03/2025 1:06 PM EDT Body Mass Index 30.54 04/03/2025 1:06 PM EDT Plan of Treatment Upcoming Encounters Date Type Department Care Team (Late st Contact Info) Description 10/02/2025 12:15 PM EDT Office Visit [facility] [address] [place] [phone] Drew Aguilar DO [address] [place] [id number] Medical Devices Implanted Type Area Map Mounter Device Identifier Shelf Expiration Date Model / Serial / Lot Bone Vivigen Formable [facility]-1600-001 - [id number] Implanted:Qty: 1 on 03/06/2024 by Drew Aguilar DO at [facility] IMPLANTS N/A: Spine Cervical LIFENET:LIFENET TRANSPLANT SRV 02/07/2025 BL-1600-0 [id number] Spcr Mini Ti [id number] 37-9009sp - [id number] Implanted:Qty: 1 on 03/06/2024 by Drew Aguilar DO at [facility] IMPLANTS N/A: Spine Cervical ORTHOFIX 08/12/2025 [id number] / / 002 Bone Vivigen Formable Bl-1600-001 - [id number] Implanted:Qty: 1 on 03/06/2024 by Drew Aguilar DO at [facility] IMPLANTS N/A: Spine Cervical LIFENET:LIFENET TRANSPLANT SRV 01/24/2025 BL-1600-0 / [id number] Spcr Mini Ti [id number] 37-9008sp - [id number] Implanted:Qty: 1 on 03/06/2024 by Drew Aguilar DO at [facility] IMPLANTS N/A: Spine Cervical ORTHOFIX 03/29/2026 [id number] / / 005 Plt Coda Lvl 2 32mm 2-02-032 - [id number] Implanted:Qty: 1 on 03/06/2024 by Drew Aguilar DO at [facility] IMPLANTS N/A: Spine Cervical SYNTHES:SYNTHES [place]:SPINE 02-0 32 / / Scr Vari Self Drilling 18mm 1022-50-018 - [id number] Implanted:Qty: 6 on 03/06/2024 by Drew Aguilar DO at [facility] IMPLANTS N/A: Spine Cervical PIONEER SUPERVISOR [employer]ASH[employer]ERS 50-0 18 / / Hermann Prelordosed 5.5x40mm [id number] - [id number] Implanted:Qty: 2 on 10/21/2024 by Drew Aguilar DO at [facility] IMPLANTS N/A: Spine Lumbar J &J:DEPUY:DEPUY SPINE 5560-55-3 040T / / Bone Matrx Vivigen Prefilled [facility]1900-001 - [id number] Implanted:Qty: 1 on 10/21/2024 by Drew Aguilar DO at [facility] IMPLANTS N/A: Spine Lumbar LIFENET:LIFENET TRANSPLANT SRV 08/27/2025 BL-1900-0 [id number] / Bone Fibers 10.0cc Plfx [facility]1799-10 - [id number] Implanted:Qty: 1 on 10/21/2024 by Drew Aguilar DO at [facility] IMPLANTS N/A: Spine Lumbar LIFENET:LIFENET TRANSPLANT SRV 06/29/2029 BL-1800-1 [id number] [id number] / Bone Fibers 10.0cc Plfx [facility]1800-10 - [id number] Implanted:Qty: 1 on 10/21/2024 by Drew Aguilar DO at [facility] IMPLANTS N/A: Spine Lumbar LIFENET:LIFENET TRANSPLANT SRV 06/24/2029 -1800-1 0 / [id number] / Cage Exp Roula Tall 10x25 [id number] - [id number] Implanted:Qty: 1 on 10/21/2024 by Drew Aguilar DO at [facility] IMPLANTS N/A: Spine Lumbar J &J:DEPUY:DEPUY SPINE [id number] / / Bone Chip Canc 1.7-10mm 30ml [id number] - [id number] Implanted:Qty: 1 on 10/21/2024 by Drew Aguilar DO at [facility] IMPLANTS N/A: Spine Lumbar MTF 07/19/2027 [id number] / [id number] / Scr Poly Fen 7x55mm [id number] - [id number] Implanted:Qty: 2 on 10/21/2024 by Drew Aguilar DO at [facility] IMPLANTS N/A: Spine Lumbar J &J:DEPUY:DEPUY SPINE 5560-12-7 055F / / Scr Poly Fen 7x50mm [id number] - [id number] Implanted:Qty: 2 on 10/21/2024 by Drew Aguilar DO at [facility] IMPLANTS N/A: Spine Lumbar J &J:DEPUY:DEPUY SPINE 5560-12-7 050F / / St Scr T27 5.5 And 6.0 [id number] - [id number] Implanted:Qty: 4 on 10/21/2024 by Drew Aguilar DO at [facility] IMPLANTS N/A: Spine Lumbar J &J:DEPUY:DEPUY SPINE 5560-01-0 000 / / Procedures Procedure Name Priority Date/Time Associated Diagnosis Comments XR SPINE CERVICAL 2 OR 3 VIEWS Routine 04/03/2025 12:54 PM EDT Radiculopathy of lumbar region Cervical myelopathy with cervical radiculopathy (HCC) XR LUMBAR SPINE 2 OR 3 VIEWS Routine 04/03/2025 12:54 PM EDT Spinal stenosis of lumbar region, unspecified whether neurogenic claudication present from Last 3 Months Results * XR spine lumbar 2 or 3 [...] disc height loss at L5-S1. Harvey Pritchard BOAT AND PLANT UTILITY SUPERVISOR [facility] DIAGNOSTIC IMAGING ORDER ZAYDA Final Result * XR spine cervical 2 or 3 [...] no significant adjacent segment degeneration. Harvey Pritchard BOAT AND PLANT UTILITY SUPERVISOR [facility] DIAGNOSTIC IMAGING ORDER ZAYDA Final Result from Last 3 Months Insurance [employer] [facility] Advance Directives For more information, please contact: [phone] * Full Code (Latest Code Status on File) Date Activated Date Inactivated Comments 10/21/2024 1:13 PM 10/25/2024 1:24 PM * Full Code Date Activated Date Inactivated Comments 10/21/2024 6:29 AM 10/21/2024 1:13 PM * Full Code Date Activated Date Inactivated Comments 03/06/2024 12:03 PM 03/07/2024 2:54 PM * Full Code Date Activated Date Inactivated Comments 03/06/2024 5:08 AM 03/06/2024 12:03 PM Care Teams Rn Social Services Relationship Specialty Start Date End Date Jodie Nunez, BOAT AND PLANT UTILITY SUPERVISOR [address] [place] [address] PCP - General Nurse Practitioner 02/22/24 Harvey Pritchard, BOAT AND PLANT UTILITY SUPERVISOR [address] [place] [address] Orthopedic Surgery 07/23/24 Maxime James MD [address] [place] [address] Sports Medicine 08/22/24
--- OUTSIDE RECORDS SUMMARY | 2025-05-15 15:13 | XMS_ITS | Clinical Summary ---
Author Organization [employer] ([place], [place], [place], [place], [place]) Address [address] [place] [address] Care Team Providers Care Aviation Electrician Name Role Phone Jodie Nunez GLASS MOULD CLEANER Primary Care Provider + Harvey Pritchard APRN Unavailable [phone] Maxime James MD Unavailable Allergies Active Allergy Reactions Criticality Noted Date [...] total) by mouth 2 (two) times daily. 4 Active fluticasone propionate (FLONASE) 50 mcg/actuation nasal [...] mouth 3 (three) times daily as needed. Active acetaminophen (TYLENOL) 500 MG tablet Take [...] 08/22/2024 Cervical myelopathy with cervical radiculopathy 02/22/2024 Encounters Date Type Department Care Team Description 04/03/2025 1:15 PM EDT Office Visit [facility] - [place] [address] [place] [phone] Drew Aguilar, DO Surgery follow-up (Primary Dx) 04/03/2025 12:45 PM EDT - 04/03/2025 11:59 PM EDT Hospital Encounter [facility] - X-ray [address] [place] [address] Harvey Pritchard, GLASS MOULD CLEANER Spinal stenosis of lumbar region, unspecified whether neurogenic claudication present; Radiculopathy of lumbar region; Cervical myelopathy with cervical radiculopathy (HCC) Discharge Disposition: Home or Self Care 04/03/2025 Travel from Last 3 Months Family History Medical History Relation Name Comments Diabetes Father Heart disease Father Hypertension Father Rheum arthritis Mother Relation Name Status Comments Father Alive Mother Social History Tobacco Use Types Packs/Day [...] your living situation today? I have a [facility] place to live 10/21/2024 Think about [...] Do you speak a language other than [facility]ian at [facility]? No 10/21/2024 Do you want help with [...] Description 10/02/2025 12:15 PM EDT Office Visit [facility] [address] [place] [phone] [place] [address] [place] [address] Health Maintenance Due Date Last Done Comments CT Colonography 1977 Colonoscopy 1977 Colorectal Cancer Screening 1977 FOBT/FIT 1977 Fit-DNA (Cologuard) 1977 Sigmoidoscopy 1977 Depression Screening (12+) 1989 HIV Screening 1992 Hepatitis C Screening 1995 DTAP/TDAP/TD VACCINES (1 - Tdap) 1996 Pneumococcal Vaccine: 0-49 Years (1 of 2 - PCV) 1995 Pap Smear 1998 Breast Cancer Screening 2017 Lipid Panel 2022 Tobacco Cessation Counseling and Screening (12+) 01/2201/23/2024 COVID-19 VACCINE ( - 2023- season) 2025 Influenza Vaccine (#1) 2025 Medical Devices Implanted Type Area Lunch Truck Driver Device Identifier Shelf Expiration Date Model / Serial / Lot Bone Vivigen Formable Sm Bl-1600-001 - [id number] Implanted:Qty: 1 on 03/06/2024 by Drew Aguilar DO at [facility] ([place], [place]) IMPLANTS N/A: Spine Cervical LIFENET:LIFENET TRANSPLANT SRV 02/07/2025 BL-1600-0 / / [id number] Spcr Mini Ti [id number] 5d 37-9009sp - [id number] Implanted:Qty: 1 on 03/06/2024 by Drew Aguilar DO at [facility] ([place], [place]) IMPLANTS N/A: Spine Cervical ORTHOFIX 08/12/2025 [id number] / / 002 Bone Vivigen Formable Sm Bl-1599-001 - [id number] Implanted:Qty: 1 on 03/06/2024 by Drew Aguilar DO at [facility] ([place], [place]) IMPLANTS N/A: Spine Cervical LIFENET:LIFENET TRANSPLANT SRV 01/24/2025 BL-1600-0 / / [id number] Spcr Mini Ti [id number] 37-9008sp - [id number] Implanted:Qty: 1 on 03/06/2024 by Drew Aguilar DO at [facility] ([place], [place]) IMPLANTS N/A: Spine Cervical ORTHOFIX 03/29/2026 37-9008SP / / 005 Plt Coda Lvl 2 32mm 1022-02-032 - [id number] Implanted:Qty: 1 on 03/06/2024 by Drew Aguilar DO at [facility] ([place], [place]) IMPLANTS N/A: Spine Cervical SYNTHES:SYNTHES [place]:SPINE 1022-02-0 32 / / Scr Vari Self Drilling 18mm 1022-50-018 - [id number] Implanted:Qty: 6 on 03/06/2024 by Drew Aguilar DO at [facility] ([place], [place]) IMPLANTS N/A: Spine Cervical PIONEER SR. DIRECTOR PRODUCT MANAGEMENT 1022-50-0 18 / / Hermann Prelordosed 5.5x40mm 4209-71-1178q - [id number] Implanted:Qty: 2 on 10/21/2024 by Drew Aguilar DO at [facility] ([place], [place]) IMPLANTS N/A: Spine Lumbar J &J:DEPUY:DEPUY SPINE 5560-55-3 040T / / Bone Matrx Vivigen Prefilled -1900-001 - [id number] Implanted:Qty: 1 on 10/21/2024 by Drew Aguilar, at [facility] ([place], [place]) IMPLANTS N/A: Spine Lumbar LIFENET:LIFENET TRANSPLANT SRV 08/27/2025 BL-1900-0 01 / [id number] / Bone Fibers 10.0cc Plfx [facility]1800-04 - [id number] Implanted:Qty: 1 on 10/21/2024 by Drew Aguilar DO at [facility] ([place], [place]) IMPLANTS N/A: Spine Lumbar LIFENET:LIFENET TRANSPLANT SRV 06/29/2029 BL-1800-1 0 / [id number] / Bone Fibers 10.0cc Plfx [place] [address] - [id number] Implanted:Qty: 1 on 10/21/2024 by Drew Aguilar DO at [facility] ([place], [place]) IMPLANTS N/A: Spine Lumbar LIFENET:LIFENET TRANSPLANT SRV 06/24/2029 -1800-1 [id number] [id number] / Cage Exp Roula Tall 10x25 [id number] - [id number] Implanted:Qty: 1 on 10/21/2024 by Drew Aguilar DO at [facility] ([place], [place]) IMPLANTS N/A: Spine Lumbar J &J:DEPUY:DEPUY SPINE [id number] / / Bone Chip Canc 1.7-10mm 30ml [id number] - [id number] Implanted:Qty: 1 on 10/21/2024 by Drew Aguilar DO at [facility] ([place], [place]) IMPLANTS N/A: Spine Lumbar MTF 07/19/2027 278234 / [id number] / Scr Poly Fen 7x55mm [id number] - [id number] Implanted:Qty: 2 on 10/21/2024 by Drew Aguilar DO at [facility] ([place], [place]) IMPLANTS N/A: Spine Lumbar J &J:DEPUY:DEPUY SPINE 5560-12-7 055F / / Scr Poly Fen 7x50mm [id number] - [id number] Implanted:Qty: 2 on 10/21/2024 by Drew Aguilar DO at [facility] ([place], [place]) IMPLANTS N/A: Spine Lumbar J &J:DEPUY:DEPUY SPINE 5560-12-7 050F / / St Scr T27 5.5 And 6.0 [id number] - [id number] Implanted:Qty: 4 on 10/21/2024 by Drew Aguilar DO at [facility] ([place], [place]) IMPLANTS N/A: Spine Lumbar J &J:DEPUY:DEPUY SPINE [...] is significant disc height loss at L5-S1. us Harvey Pritchard APRN IMG DIAGNOSTIC IMAGING ORDER ZAYDA Final Result * [...] no significant adjacent segment degeneration. Harvey Pritchard APRN IMG DIAGNOSTIC IMAGING ORDER ZAYDA Final Result from Last 3 Months Insurance [employer] [facility] Advance Directives For more information, please contact: [phone] * Full Code (Latest Code Status on File) Date Activated Date Inactivated Comments 10/21/2024 1:13 PM 10/25/2024 1:24 PM * Full Code Date Activated Date Inactivated Comments 10/21/2024 6:29 AM 10/21/2024 1:13 PM * Full Code Date Activated Date Inactivated Comments 03/06/2024 12:03 PM 03/07/2024 2:54 PM * Full Code Date Activated Date Inactivated Comments 03/06/2024 5:08 AM 03/06/2024 12:03 PM Care Teams Aviation Electrician Relationship Specialty Start Date End Date Jodie Nunez APRN [address] [place] [address] PCP - General Nurse Practitioner 02/22/24 Harvey Pritchard, MEERA [address] [place] [address] Orthopedic Surgery 07/23/24 Maxime James MD [address] [place], [place] [id number] Sports Medicine 08/22/24
--- NOTE | 2025-05-15 15:30 | US_ITS ---
PROCEDURE: US TRANSVAGINAL CLINICAL INDICATION: Rt Ovarian Cyst , Fibroids COMPARISON: No exams were available for comparison FINDINGS: Transvaginal and transabdominal sonographic images of the pelvis were obtained. UTERUS: 9.1cm x 4.6 cmx 3.9 cm anteverted with a combined endometrial thickness of 7.4mm. There appears to be a small polyp within the endometrium measuring 0.6 cm. There is a nabothian cyst in the cervix. A CC section scar is seen There is a fundal, pedunculated fibroid measuring 3.2 cm x 2.3 cm x 2.2 cm. LEFT OVARY: 3.3cmx2.6 cmx1.8cm with a volume of 8ml. There is a follicle in the left ovary measuring 1.3 cm x 1.7 cm x 1.2 cm. RIGHT OVARY: 2.3cmx 2.0cmx1.7 minutes with a volume of 4.1ml. There is a follicle measuring 1.8 cm x 1.7 cm x 1.3 cm. Both ovaries are seen and appear normal. Doppler flow to both ovaries are seen. There is no fluid in the cul-de-sac. IMPRESSION: 1. Anteverted, bulky uterus. There is a polyp within the endometrium that measures 0.6 cm. 2. There is a pedunculated fundal fibroid measuring 3.2 cm in size. 3. Both ovaries are seen and appear normal. They both contain follicles. 4. No fluid in the cul-de-sac. Dictated by: Prince Conn MD 05/15/2025 17:46 Prince Conn MD in OV 05/15/2025 17:46
--- NOTE | 2025-05-15 16:00 | MM_ITS ---
PROCEDURE INFORMATION: Exam: Bilateral Screening 3D Mammography Exam date and time: 05/15/2025 3:27 PM Age: 50 years old Clinical indication: Screening exam. TECHNIQUE: Imaging protocol: Bilateral Screening tomosynthesis and 2D mammography including computer-aided detection (CAD) when performed. COMPARISON: 1. MG Screening-Bilateral Mammography 10/05/2020 6:32 PM 2. MG DMSB DIGITAL MAMM-SCREEN BILATERAL 08/07/2012 3:42 PM FINDINGS: MAMMOGRAPHY: Breast composition: There are scattered areas of fibroglandular density. Mass: No suspicious masses. Architectural distortion: None. Calcifications: No suspicious calcifications. Asymmetric density: None. Skin thickening: None. Axillary adenopathy: None. IMPRESSION: No mammographic evidence of malignancy. Annual screening is recommended unless otherwise clinically indicated. ASSESSMENT: BI-RADS Category 1: Negative.
== END 2025-05-15 23:59 | disposition home or self-care (01) ==
LOC: RAD 15:11
PROVIDERS: PCP Nurse Practitioner Family; Visit Provider Nurse Practitioner Obstetrics & Gynecology
DX: Z12.31 Encounter for screening mammogram for malignant neoplasm of breast (principal); R92.323 Mammographic fibroglandular density, bilateral breasts; N84.0 Polyp of corpus uteri; N83.02 Follicular cyst of left ovary; N83.01 Follicular cyst of right ovary; D25.9 Leiomyoma of uterus, unspecified
CPT/HCPCS: 76830; 77063; 77067